=== PATIENT | female | born 1950 | race African-American/Black ===

== ENCOUNTER 2016-06-21 13:47 | Inpatient (IN) | payer MEDICARE, MEDICAID ==
[~2016-06-21] VITALS: Ht 167.6 cm; Wt 110.7 kg
[~2016-06-21 13:47] MED LIST: AMIODARONE; AMLO5TAB4 PO; ASPI-1035 PO; BENA20TA3 PO; CARV25TA47 PO; CHOL500010 PO; CLOP75TA2 PO; DIGO125T82 PO; FURO40TA5 PO; ISOS30TA6 PO; POTA10CA42 PO; SIMV20TA6 PO; SPIR25TA4 PO; WARF4TAB39 PO
[2016-06-21] MEDS ORDERED: SODIUM CHLORIDE 0.9% 1,000 ML IV ONE (14:17)
[2016-06-21 14:41] LABS: BASOPHILS % 0.9 % (0.0-2.0); EOSINOPHILS % 2.5 % (0.0-5.0); HEMOGLOBIN. 13.4 g/dL (12.0-16.0); LYMPHOCYTES % 31.5 % (20.0-50.0); MEAN CORPUSCULAR HEMOGLOBIN 30.7 pg (28.0-32.0); MEAN CORPUSCULAR HGB CONC 34.4 g/dL (31.0-37.0); MEAN CORPUSCULAR VOLUME 89.3 fL (81.0-99.0); MONOCYTES % 9.8 % (2.0-8.0); NEUTROPHILS % 55.3 % (40.0-76.0); PLATELET 201 x1000/uL (130-400); RED BLOOD CELL COUNT 4.37 mill/uL (4.2-5.4); RED CELL DISTRIBUTION WIDTH 16.7 % (11.6-14.6); WHITE BLOOD COUNT 6.3 x1000/uL (4.5-11.0)
[2016-06-21 14:47] LABS: INR 1.2; PROTHROMBIN TIME 12.5 sec
[2016-06-21 14:57] LABS: ALANINE AMINOTRANSFERASE 17 IU/L (13-61); ALBUMIN 3.7 g/dL (3.4-5.0); ANION GAP 16; CALCIUM 8.9 mg/dL (8.5-10.1); CARBON DIOXIDE 28 mEq/L (21-32); CHLORIDE 101 mEq/L (98-107); INDEX HEMOLYSI 1 (1-3); INDEX ICTERIC 2 (1-4); INDEX LIPEMIC 1 (1-3); LIPASE 52 IU/L (73-393); NT PRO B-TYPE NATRIURETIC PEP 11857 pg/mL (5-125); TROPONIN I 0.07 ng/mL (0.00-0.04); UREA NITROGEN BLOOD 10 mg/dL (7-21); eGFR > 60 mL/min (>60)
[2016-06-21 15:01] LABS: LACTIC ACID 2.7 mmol/L (0.4-2.0)
[2016-06-21] MEDS ORDERED: POTASSIUM CHLORIDE 20MEQ TABLET SR PO ONE (15:45)
[2016-06-21] MEDS ORDERED: KCL 10MEQ/50ML PREMIX 50 ML IV ONE (15:45)
[2016-06-21 15:53] LABS: MAGNESIUM 2.1 mg/dL (1.8-2.4)
[2016-06-21] MEDS ORDERED: LORAZEPAM 2MG/ML CPJ IV ONE (16:30)
[2016-06-21] MEDS ORDERED: ONDANSETRON HCL 4MG/2ML VIAL IV ONE (16:30)
[2016-06-21 20:00] VITALS: BP 135/96
[2016-06-21 20:30] VITALS: BP 135/99
[2016-06-21] MEDS ORDERED: CLONIDINE 0.1MG TABLET PO PRN (21:30)
[2016-06-21] MEDS ORDERED: IPRATROPIUM/ALBUTEROL 0.5-3(2.5)MG/3ML NEB INH PRN (21:30)
[2016-06-21] MEDS ORDERED: MAGNESIUM/ALUMINUM HYDROXIDE/SIMETHICONE 30ML UDC PO PRN (21:30)
[2016-06-21] MEDS ORDERED: ACETAMINOPHEN 325MG TABLET PO PRN (21:30)
[2016-06-21] MEDS: ENOXAPARIN 30MG/0.3ML SYR SUBCUT SCH (22:31)
[2016-06-21] MEDS: HYDROCODONE/ACETAMINOPHEN 5/325MG TABLET PO PRN (22:50)
[2016-06-21 23:21] LABS: ANION GAP 14; CALCIUM 8.7 mg/dL (8.5-10.1); CARBON DIOXIDE 26 mEq/L (21-32); CHLORIDE 106 mEq/L (98-107); INDEX HEMOLYSI 1 (1-3); INDEX ICTERIC 2 (1-4); INDEX LIPEMIC 1 (1-3); MAGNESIUM 1.9 mg/dL (1.8-2.4); UREA NITROGEN BLOOD 10 mg/dL (7-21)
[2016-06-21 23:23] LABS: eGFR > 60 mL/min (>60)
[2016-06-21 23:26] LABS: CREATINE KINASE 47 IU/L (26-192); CREATINE KINASE MB FRACTION 0.5 ng/mL (0.5-3.6); TROPONIN I 0.07 ng/mL (0.00-0.04)
[2016-06-22] VITALS: BP 148/91
[2016-06-22 04:00] VITALS: BP 132/98
[2016-06-22 07:21] LABS: CREATINE KINASE MB FRACTION 0.5 ng/mL (0.5-3.6); THYROID STIMULATING HORMONE 1.4 mIU/mL (0.36-3.74); TROPONIN I 0.07 ng/mL (0.00-0.04)
[2016-06-22 08:00] VITALS: BP 135/103
[2016-06-22] MEDS: ASPIRIN 81MG EC TABLET PO SCH (08:40)
[2016-06-22] MEDS: ENOXAPARIN 30MG/0.3ML SYR SUBCUT SCH (08:40)
[2016-06-22] MEDS: CHOLECALCIFEROL (D3) 1000 UNIT TABLET PO SCH (08:40)
[2016-06-22] MEDS: PANTOPRAZOLE 40MG DR TABLET PO SCH (08:40)
[2016-06-22] MEDS: CLOPIDOGREL 75MG TABLET PO SCH (08:41)
[2016-06-22] MEDS: BENAZEPRIL 20MG TABLET PO SCH (08:41)
[2016-06-22] MEDS: SPIRONOLACTONE 25MG TABLET PO SCH (08:41)
[2016-06-22] MEDS: AMIODARONE HCL 200 MG TABLET PO SCH (08:41)
[2016-06-22] MEDS: POTASSIUM CHLORIDE 10MEQ TABLET SR PO SCH (08:41)
[2016-06-22] MEDS ORDERED: FUROSEMIDE 40MG TABLET PO SCH (09:00)
[2016-06-22] MEDS ORDERED: POTASSIUM CHLORIDE 20MEQ TABLET SR PO NR (11:15)
[2016-06-22 12:00] VITALS: BP 141/95
[2016-06-22] MEDS: ISOSORBIDE MONONITRATE 30MG TABLET SR 24HR PO SCH (13:13)
[2016-06-22] MEDS: CARVEDILOL 12.5MG TABLET PO SCH (13:13)
[2016-06-22] MEDS: AMLODIPINE 5MG TABLET PO SCH (13:13)
[2016-06-22] MEDS: FUROSEMIDE 40MG/4ML VIAL IVP SCH ×2 (13:21→17:13)
[2016-06-22 15:23] LABS: GLUCOSE URINE NEGATIVE (NEGATIVE); KETONES URINE NEGATIVE (NEGATIVE); LEUKOCYTE ESTERASE URINE NEGATIVE (NEGATIVE); NITRITE URINE NEGATIVE (NEGATIVE); OCCULT BLOOD URINE 1+ (NEGATIVE); PROTEIN URINE NEGATIVE (NEGATIVE); SPECIFIC GRAVITY URINE 1.007 (1.005-1.030)
[2016-06-22 15:24] LABS: CLARITY URINE CLOUDY (CLEAR); COLOR URINE YELLOW (YELLOW)
[2016-06-22 15:39] LABS: BACTERIA URINE TRACE; MUCUS URINE TRACE /lpf (< = 2+); SQUAMOUS EPITHELIAL CELL URINE 1+ /lpf (RARE/1+); WBC URINE 0-2 /hpf (0-2)
[2016-06-22 15:44] LABS: *AMPHETAMINES SCREEN URINE NEGATIVE (NEGATIVE); *BARBITURATES SCREEN URINE NEGATIVE (NEGATIVE); *BENZODIAZEPINES SCREEN URINE NEGATIVE (NEGATIVE); *COCAINE SCREEN URINE NEGATIVE (NEGATIVE); CANNABINOID URINE SCREEN NEGATIVE (NEGATIVE); ECSTASY MDMA SCREEN URINE NEGATIVE (NEGATIVE); METHADONE URINE SCREEN NEGATIVE (NEGATIVE); OPIATES URINE SCREEN PRESUMTIVE POSITIVE (NEGATIVE); PHENCYCLIDINE URINE SCREEN NEGATIVE (NEGATIVE)
[2016-06-22 16:00] VITALS: BP 116/80
[2016-06-22] MEDS: DIGOXIN 125MCG TABLET PO SCH (17:13)
[2016-06-22] MEDS: HYDROCODONE/ACETAMINOPHEN 5/325MG TABLET PO PRN (17:48)
[2016-06-22] MEDS ORDERED: WARFARIN SODIUM 5MG TABLET PO SCH (18:00)
[2016-06-22] MEDS ORDERED: WARFARIN SODIUM 4MG TABLET PO SCH (18:00)
[2016-06-22 20:00] VITALS: BP 100/64
[2016-06-22] MEDS: ATORVASTATIN CALCIUM 10MG TABLET PO SCH (22:39)
[2016-06-23] VITALS: BP 111/79
[2016-06-23 04:00] VITALS: BP 123/87
[2016-06-23 06:25] LABS: BASOPHILS % 1.6 % (0.0-2.0); EOSINOPHILS % 8.7 % (0.0-5.0); HEMATOCRIT. 32.2 % (36.0-48.0); HEMOGLOBIN. 11.1 g/dL (12.0-16.0); LYMPHOCYTES % 29.6 % (20.0-50.0); MEAN CORPUSCULAR HEMOGLOBIN 30.8 pg (28.0-32.0); MEAN CORPUSCULAR HGB CONC 34.3 g/dL (31.0-37.0); MEAN CORPUSCULAR VOLUME 89.8 fL (81.0-99.0); MONOCYTES % 11.2 % (2.0-8.0); NEUTROPHILS % 48.9 % (40.0-76.0); PLATELET 149 x1000/uL (130-400); RED BLOOD CELL COUNT 3.59 mill/uL (4.2-5.4); RED CELL DISTRIBUTION WIDTH 16.9 % (11.6-14.6); WHITE BLOOD COUNT 4.9 x1000/uL (4.5-11.0)
[2016-06-23 06:41] LABS: INR 1.2; PROTHROMBIN TIME 12.7 sec
[2016-06-23 06:58] LABS: ALANINE AMINOTRANSFERASE 19 IU/L (13-61); ALBUMIN 3.3 g/dL (3.4-5.0); ANION GAP 13; CALCIUM 8.1 mg/dL (8.5-10.1); CARBON DIOXIDE 32 mEq/L (21-32); CHLORIDE 103 mEq/L (98-107); INDEX HEMOLYSI 1 (1-3); INDEX ICTERIC 1 (1-4); INDEX LIPEMIC 1 (1-3); MAGNESIUM 1.7 mg/dL (1.8-2.4); UREA NITROGEN BLOOD 9 mg/dL (7-21); eGFR > 60 mL/min (>60)
[2016-06-23 08:00] VITALS: BP 136/92
[2016-06-23] MEDS: CLOPIDOGREL 75MG TABLET PO SCH (09:07)
[2016-06-23] MEDS: BENAZEPRIL 20MG TABLET PO SCH (09:08)
[2016-06-23] MEDS: AMLODIPINE 5MG TABLET PO SCH (09:08)
[2016-06-23] MEDS: AMIODARONE HCL 200 MG TABLET PO SCH (09:09)
[2016-06-23] MEDS: SPIRONOLACTONE 25MG TABLET PO SCH (09:09)
[2016-06-23] MEDS: PANTOPRAZOLE 40MG DR TABLET PO SCH (09:09)
[2016-06-23] MEDS: ISOSORBIDE MONONITRATE 30MG TABLET SR 24HR PO SCH (09:09)
[2016-06-23] MEDS: CHOLECALCIFEROL (D3) 1000 UNIT TABLET PO SCH (09:09)
[2016-06-23] MEDS: ASPIRIN 81MG EC TABLET PO SCH (09:09)
[2016-06-23] MEDS: POTASSIUM CHLORIDE 10MEQ TABLET SR PO SCH (09:09)
[2016-06-23] MEDS: CARVEDILOL 12.5MG TABLET PO SCH (09:10)
[2016-06-23] MEDS: FUROSEMIDE 40MG/4ML VIAL IVP SCH ×2 (09:10→17:57)
[2016-06-23] MEDS ORDERED: POTASSIUM CHLORIDE 20MEQ TABLET SR PO NR ×2 (11:07→16:00)
[2016-06-23 12:00] VITALS: BP 107/67
[2016-06-23] MEDS ORDERED: MAGNESIUM 2 G PREMIX 50 ML IV NR (13:00)
[2016-06-23] MEDS: ENOXAPARIN 100MG/ML SYR SUBCUT SCH ×3 (13:03→21:31)
[2016-06-23 16:00] VITALS: BP 114/75
[2016-06-23] MEDS: DIGOXIN 125MCG TABLET PO SCH (17:56)
[2016-06-23] MEDS ORDERED: WARFARIN SODIUM 7.5MG TABLET PO SCH (18:00)
[2016-06-23 20:00] VITALS: BP 120/75
[2016-06-23] MEDS: ZOLPIDEM TARTRATE 5MG TABLET PO PRN (21:30)
[2016-06-23] MEDS: ATORVASTATIN CALCIUM 10MG TABLET PO SCH (21:30)
[2016-06-24] VITALS: BP 112/75
[2016-06-24 04:00] VITALS: BP 112/81
[2016-06-24] MEDS: HYDROCODONE/ACETAMINOPHEN 5/325MG TABLET PO PRN (05:38)
[2016-06-24 06:23] LABS: INR 1.2; PROTHROMBIN TIME 12.5 sec
[2016-06-24 06:24] LABS: EOSINOPHILS % 11.1 % (0.0-5.0); HEMATOCRIT. 33.3 % (36.0-48.0); HEMOGLOBIN. 11.3 g/dL (12.0-16.0); LYMPHOCYTES % 35.3 % (20.0-50.0); MEAN CORPUSCULAR HEMOGLOBIN 30.5 pg (28.0-32.0); MEAN CORPUSCULAR VOLUME 89.7 fL (81.0-99.0); MEAN PLATELET VOLUME 8.7 fl (7.4-10.4); MONOCYTES % 13.7 % (2.0-8.0); NEUTROPHILS % 37.9 % (40.0-76.0); PLATELET 173 x1000/uL (130-400); RED BLOOD CELL COUNT 3.71 mill/uL (4.2-5.4); RED CELL DISTRIBUTION WIDTH 16.8 % (11.6-14.6); WHITE BLOOD COUNT 4.7 x1000/uL (4.5-11.0)
[2016-06-24 06:51] LABS: CHLORIDE 103 mEq/L (98-107); INDEX HEMOLYSI 1 (1-3); INDEX ICTERIC 1 (1-4); INDEX LIPEMIC 1 (1-3)
[2016-06-24 07:24] LABS: ANION GAP 14; CALCIUM 8.3 mg/dL (8.5-10.1); CARBON DIOXIDE 29 mEq/L (21-32); MAGNESIUM 2.4 mg/dL (1.8-2.4); NT PRO B-TYPE NATRIURETIC PEP 2163 pg/mL (5-125); UREA NITROGEN BLOOD 7 mg/dL (7-21); eGFR > 60 mL/min (>60)
[2016-06-24] MEDS: PANTOPRAZOLE 40MG DR TABLET PO SCH (07:53)
[2016-06-24 08:00] VITALS: BP 135/88
[2016-06-24] MEDS: FUROSEMIDE 40MG/4ML VIAL IVP SCH ×2 (08:05→17:42)
[2016-06-24] MEDS: ISOSORBIDE MONONITRATE 30MG TABLET SR 24HR PO SCH (09:00)
[2016-06-24] MEDS: CHOLECALCIFEROL (D3) 1000 UNIT TABLET PO SCH (09:18)
[2016-06-24] MEDS: CARVEDILOL 12.5MG TABLET PO SCH (09:19)
[2016-06-24] MEDS: CLOPIDOGREL 75MG TABLET PO SCH (09:19)
[2016-06-24] MEDS: AMLODIPINE 5MG TABLET PO SCH (09:19)
[2016-06-24] MEDS: ASPIRIN 81MG EC TABLET PO SCH (09:19)
[2016-06-24] MEDS: POTASSIUM CHLORIDE 10MEQ TABLET SR PO SCH (09:19)
[2016-06-24] MEDS: SPIRONOLACTONE 25MG TABLET PO SCH (09:19)
[2016-06-24] MEDS: AMIODARONE HCL 200 MG TABLET PO SCH (09:26)
[2016-06-24] MEDS: BENAZEPRIL 20MG TABLET PO SCH (09:26)
[2016-06-24 12:00] VITALS: BP 118/80
[2016-06-24] MEDS: ENOXAPARIN 100MG/ML SYR SUBCUT SCH (12:09)
[2016-06-24] MEDS: DRONABINOL 2.5MG CAPSULE PO SCH (15:00)
[2016-06-24 16:00] VITALS: BP 107/73
[2016-06-24] MEDS ORDERED: WARFARIN SODIUM 3MG TABLET PO SCH (18:00)
[2016-06-24] MEDS: DIGOXIN 125MCG TABLET PO SCH (18:00)
[2016-06-24 20:00] VITALS: BP 139/96
[2016-06-24] MEDS: ATORVASTATIN CALCIUM 10MG TABLET PO SCH (20:20)
[2016-06-24] MEDS: ZOLPIDEM TARTRATE 5MG TABLET PO PRN (20:23)
[2016-06-24] MEDS ORDERED: ENOXAPARIN 100MG/ML SYR SUBCUT SCH (21:00)
[2016-06-25] VITALS: BP 120/72
[2016-06-25 04:00] VITALS: BP 135/88
[2016-06-25 06:58] LABS: INR 1.2; PROTHROMBIN TIME 12.2 sec
[2016-06-25 07:04] LABS: BASOPHILS % 0.8 % (0.0-2.0); EOSINOPHILS % 11.2 % (0.0-5.0); HEMATOCRIT. 37.2 % (36.0-48.0); HEMOGLOBIN. 12.7 g/dL (12.0-16.0); MEAN CORPUSCULAR HEMOGLOBIN 30.6 pg (28.0-32.0); MEAN CORPUSCULAR HGB CONC 34.1 g/dL (31.0-37.0); MEAN CORPUSCULAR VOLUME 89.6 fL (81.0-99.0); MONOCYTES % 9.9 % (2.0-8.0); NEUTROPHILS % 42.1 % (40.0-76.0); PLATELET 227 x1000/uL (130-400); RED BLOOD CELL COUNT 4.14 mill/uL (4.2-5.4); RED CELL DISTRIBUTION WIDTH 16.5 % (11.6-14.6); WHITE BLOOD COUNT 5.2 x1000/uL (4.5-11.0)
[2016-06-25 07:25] LABS: ALANINE AMINOTRANSFERASE 23 IU/L (13-61); ALBUMIN 3.7 g/dL (3.4-5.0); ANION GAP 11; CALCIUM 9.3 mg/dL (8.5-10.1); CARBON DIOXIDE 33 mEq/L (21-32); CHLORIDE 101 mEq/L (98-107); INDEX HEMOLYSI 1 (1-3); INDEX ICTERIC 1 (1-4); INDEX LIPEMIC 1 (1-3); UREA NITROGEN BLOOD 7 mg/dL (7-21); eGFR > 60 mL/min (>60)
[2016-06-25] MEDS: PANTOPRAZOLE 40MG DR TABLET PO SCH (07:40)
[2016-06-25 08:00] VITALS: BP 137/96
[2016-06-25] MEDS: FUROSEMIDE 40MG/4ML VIAL IVP SCH ×2 (08:29→17:49)
[2016-06-25] MEDS: CHOLECALCIFEROL (D3) 1000 UNIT TABLET PO SCH ×2 (09:00→17:03)
[2016-06-25] MEDS: ISOSORBIDE MONONITRATE 30MG TABLET SR 24HR PO SCH (09:00)
[2016-06-25] MEDS: CARVEDILOL 12.5MG TABLET PO SCH (09:00)
[2016-06-25] MEDS: ASPIRIN 81MG EC TABLET PO SCH (09:00)
[2016-06-25] MEDS: DRONABINOL 2.5MG CAPSULE PO SCH ×2 (09:00→17:02)
[2016-06-25] MEDS: SPIRONOLACTONE 25MG TABLET PO SCH (09:00)
[2016-06-25] MEDS: AMIODARONE HCL 200 MG TABLET PO SCH ×2 (09:00→17:04)
[2016-06-25] MEDS: POTASSIUM CHLORIDE 10MEQ TABLET SR PO SCH (09:00)
[2016-06-25] MEDS: BENAZEPRIL 20MG TABLET PO SCH (09:00)
[2016-06-25 12:00] VITALS: BP 109/87
[2016-06-25] MEDS ORDERED: SIMETHICONE 40 MG/0.6 ML 30ML ONE ×2 (13:09→14:07)
[2016-06-25] MEDS ORDERED: SODIUM CHLORIDE 0.9% 10ML VIAL ONE (13:09)
[2016-06-25] MEDS ORDERED: MIDAZOLAM HCL 5 MG/5 ML VIAL IV PRN (14:05)
[2016-06-25] MEDS ORDERED: MIDAZOLAM HCL 5 MG/5 ML VIAL ONE (14:08)
[2016-06-25] MEDS ORDERED: FENTANYL CITRATE/PF 50MCG/ML 2ML VIAL ONE (14:08)
[2016-06-25 16:00] VITALS: BP 138/94
[2016-06-25] MEDS: DIGOXIN 125MCG TABLET PO SCH (17:00)
[2016-06-25] MEDS: SUCRALFATE 1 G/10 ML UDC PO SCH ×2 (17:00→20:25)
[2016-06-25] MEDS: GUAIFENESIN 200MG/10ML SUGAR FREE UDC PO PRN (18:29)
[2016-06-25] MEDS: ONDANSETRON HCL 4MG/2ML VIAL IV PRN (19:46)
[2016-06-25 19:48] LABS: HEMATOCRIT 39.7 % (36.0-48.0); HEMOGLOBIN 13.6 g/dL (12.0-16.0)
[2016-06-25 20:00] VITALS: BP 110/80
[2016-06-25] MEDS: FAMOTIDINE 20MG/2ML VIAL IV SCH (20:25)
[2016-06-25] MEDS: ATORVASTATIN CALCIUM 10MG TABLET PO SCH (20:25)
[2016-06-25] MEDS: ZOLPIDEM TARTRATE 5MG TABLET PO PRN (20:43)
[2016-06-26] VITALS: BP 115/87
[2016-06-26 04:00] VITALS: BP 101/75
[2016-06-26] MEDS: ONDANSETRON HCL 4MG/2ML VIAL IV PRN ×2 (04:01→18:45)
[2016-06-26 06:32] LABS: EOSINOPHILS % 8.2 % (0.0-5.0); HEMATOCRIT. 36.1 % (36.0-48.0); HEMOGLOBIN. 12.4 g/dL (12.0-16.0); MEAN CORPUSCULAR HEMOGLOBIN 30.9 pg (28.0-32.0); MEAN CORPUSCULAR HGB CONC 34.3 g/dL (31.0-37.0); MEAN CORPUSCULAR VOLUME 90.1 fL (81.0-99.0); MEAN PLATELET VOLUME 8.7 fl (7.4-10.4); MONOCYTES % 11.3 % (2.0-8.0); NEUTROPHILS % 52.5 % (40.0-76.0); PLATELET 217 x1000/uL (130-400); RED BLOOD CELL COUNT 4.01 mill/uL (4.2-5.4); RED CELL DISTRIBUTION WIDTH 16.4 % (11.6-14.6); WHITE BLOOD COUNT 6.4 x1000/uL (4.5-11.0)
[2016-06-26 07:06] LABS: ANION GAP 11; CALCIUM 8.7 mg/dL (8.5-10.1); CARBON DIOXIDE 31 mEq/L (21-32); CHLORIDE 102 mEq/L (98-107); INDEX HEMOLYSI 2 (1-3); INDEX ICTERIC 1 (1-4); INDEX LIPEMIC 1 (1-3); UREA NITROGEN BLOOD 22 mg/dL (7-21); eGFR > 60 mL/min (>60)
[2016-06-26] MEDS: FUROSEMIDE 40MG/4ML VIAL IVP SCH ×2 (07:15→08:08)
[2016-06-26 07:37] VITALS: BP 94/74
[2016-06-26] MEDS: SUCRALFATE 1 G/10 ML UDC PO SCH ×4 (08:08→20:56)
[2016-06-26] MEDS: PANTOPRAZOLE 40MG DR TABLET PO SCH (08:08)
[2016-06-26] MEDS: FAMOTIDINE 20MG/2ML VIAL IV SCH ×2 (08:08→20:56)
[2016-06-26] MEDS: BENAZEPRIL 20MG TABLET PO SCH (08:13)
[2016-06-26] MEDS: POTASSIUM CHLORIDE 10MEQ TABLET SR PO SCH (08:13)
[2016-06-26] MEDS: ASPIRIN 81MG EC TABLET PO SCH (08:13)
[2016-06-26] MEDS: CARVEDILOL 12.5MG TABLET PO SCH ×2 (08:14→17:34)
[2016-06-26] MEDS: SPIRONOLACTONE 25MG TABLET PO SCH (08:14)
[2016-06-26] MEDS: ISOSORBIDE MONONITRATE 30MG TABLET SR 24HR PO SCH (08:14)
[2016-06-26] MEDS ORDERED: POTASSIUM CHLORIDE 20MEQ TABLET SR PO SCH (08:30)
[2016-06-26 12:00] VITALS: BP 116/97
[2016-06-26 13:58] LABS: MAGNESIUM 2.3 mg/dL (1.8-2.4)
[2016-06-26 16:00] VITALS: BP 96/72
[2016-06-26] MEDS: DIGOXIN 250MCG TABLET PO SCH (17:33)
[2016-06-26] MEDS: AMIODARONE HCL 200 MG TABLET PO SCH (17:34)
[2016-06-26 20:00] VITALS: BP 114/83
[2016-06-26] MEDS: ZOLPIDEM TARTRATE 5MG TABLET PO PRN (20:56)
[2016-06-26] MEDS: ATORVASTATIN CALCIUM 10MG TABLET PO SCH (20:56)
[2016-06-27] VITALS (7 sets, daily range): BP systolic 99–115; BP diastolic 70–91
[2016-06-27] MEDS: GUAIFENESIN 200MG/10ML SUGAR FREE UDC PO PRN ×2 (06:17→13:29)
[2016-06-27 07:00] LABS: ANION GAP 14; CALCIUM 8.8 mg/dL (8.5-10.1); CARBON DIOXIDE 26 mEq/L (21-32); CHLORIDE 107 mEq/L (98-107); INDEX HEMOLYSI 4 (1-3); INDEX ICTERIC 1 (1-4); INDEX LIPEMIC 1 (1-3); MAGNESIUM 2.4 mg/dL (1.8-2.4); UREA NITROGEN BLOOD 26 mg/dL (7-21); eGFR > 60 mL/min (>60)
[2016-06-27] MEDS: SUCRALFATE 1 G/10 ML UDC PO SCH ×4 (07:58→20:57)
[2016-06-27] MEDS: PANTOPRAZOLE 40MG DR TABLET PO SCH (07:58)
[2016-06-27 08:35] LABS: EOSINOPHILS % 9.4 % (0.0-5.0); HEMATOCRIT. 35.8 % (36.0-48.0); LYMPHOCYTES % 29.5 % (20.0-50.0); MEAN CORPUSCULAR HEMOGLOBIN 30.1 pg (28.0-32.0); MEAN CORPUSCULAR HGB CONC 33.6 g/dL (31.0-37.0); MEAN CORPUSCULAR VOLUME 89.6 fL (81.0-99.0); MEAN PLATELET VOLUME 8.8 fl (7.4-10.4); MONOCYTES % 8.5 % (2.0-8.0); NEUTROPHILS % 51.6 % (40.0-76.0); RED BLOOD CELL COUNT 3.99 mill/uL (4.2-5.4); RED CELL DISTRIBUTION WIDTH 16.5 % (11.6-14.6); WHITE BLOOD COUNT 8.1 x1000/uL (4.5-11.0)
[2016-06-27 08:38] LABS: PLATELET 259 x1000/uL (130-400)
[2016-06-27] MEDS: ASPIRIN 81MG EC TABLET PO SCH (09:00)
[2016-06-27] MEDS: BENAZEPRIL 20MG TABLET PO SCH (09:00)
[2016-06-27] MEDS: SPIRONOLACTONE 25MG TABLET PO SCH (09:00)
[2016-06-27] MEDS: CARVEDILOL 12.5MG TABLET PO SCH (09:00)
[2016-06-27] MEDS: POTASSIUM CHLORIDE 10MEQ TABLET SR PO SCH (09:00)
[2016-06-27] MEDS: ISOSORBIDE MONONITRATE 30MG TABLET SR 24HR PO SCH (09:00)
[2016-06-27] MEDS ORDERED: DEXT 5%/0.45% NACL 1000ML 1,000 ML IV SCH (09:30)
[2016-06-27] MEDS: PANTOPRAZOLE SODIUM 40 MG/VIAL IV SCH ×2 (10:31→18:25)
[2016-06-27] MEDS: DRONABINOL 2.5MG CAPSULE PO SCH (10:33)
[2016-06-27] MEDS: AMIODARONE HCL 200 MG TABLET PO SCH ×2 (10:33→17:02)
[2016-06-27] MEDS: CHOLECALCIFEROL (D3) 1000 UNIT TABLET PO SCH (10:33)
[2016-06-27 12:13] LABS: HEMATOCRIT 34.4 % (36.0-48.0); HEMOGLOBIN 11.8 g/dL (12.0-16.0)
[2016-06-27 12:22] LABS: INR 1.2; PARTIAL THROMBOPLASTIN TIME 26.2 sec (24.0-34.0); PROTHROMBIN TIME 12.7 sec
[2016-06-27] MEDS: DIGOXIN 250MCG TABLET PO SCH (18:19)
[2016-06-27] MEDS: ONDANSETRON HCL 4MG/2ML VIAL IV PRN (18:25)
[2016-06-27 19:43] LABS: HEMATOCRIT 34.8 % (36.0-48.0); HEMOGLOBIN 11.7 g/dL (12.0-16.0)
[2016-06-27] MEDS: ZOLPIDEM TARTRATE 5MG TABLET PO PRN (20:57)
[2016-06-27] MEDS: ATORVASTATIN CALCIUM 10MG TABLET PO SCH (20:57)
[2016-06-27] MEDS: FUROSEMIDE 20MG TABLET PO SCH (20:59)
[2016-06-27] MEDS: BENAZEPRIL 10MG TABLET PO SCH (21:00)
[2016-06-28] VITALS: BP 108/55
[2016-06-28 04:00] VITALS: BP 124/76
[2016-06-28] MEDS: PANTOPRAZOLE SODIUM 40 MG/VIAL IV SCH ×2 (05:36→18:06)
[2016-06-28 07:18] LABS: ANION GAP 12; CALCIUM 8.5 mg/dL (8.5-10.1); CARBON DIOXIDE 27 mEq/L (21-32); CHLORIDE 105 mEq/L (98-107); INDEX HEMOLYSI 1 (1-3); INDEX ICTERIC 1 (1-4); INDEX LIPEMIC 1 (1-3); MAGNESIUM 2.4 mg/dL (1.8-2.4); UREA NITROGEN BLOOD 14 mg/dL (7-21); eGFR > 60 mL/min (>60)
[2016-06-28 07:25] LABS: DIGOXIN 2.3 ng/mL (0.9-2.0)
[2016-06-28] MEDS: SUCRALFATE 1 G/10 ML UDC PO SCH ×4 (07:51→20:57)
[2016-06-28 08:00] VITALS: BP 122/67
[2016-06-28 08:01] LABS: BASOPHILS % 1.1 % (0.0-2.0); HEMATOCRIT. 32.3 % (36.0-48.0); LYMPHOCYTES % 30.6 % (20.0-50.0); MEAN CORPUSCULAR HEMOGLOBIN 30.5 pg (28.0-32.0); MEAN CORPUSCULAR VOLUME 89.6 fL (81.0-99.0); MEAN PLATELET VOLUME 8.8 fl (7.4-10.4); MONOCYTES % 10.4 % (2.0-8.0); NEUTROPHILS % 43.9 % (40.0-76.0); PLATELET 207 x1000/uL (130-400); RED BLOOD CELL COUNT 3.61 mill/uL (4.2-5.4); RED CELL DISTRIBUTION WIDTH 15.9 % (11.6-14.6); WHITE BLOOD COUNT 5.9 x1000/uL (4.5-11.0)
[2016-06-28] MEDS: DRONABINOL 2.5MG CAPSULE PO SCH (09:24)
[2016-06-28] MEDS: CARVEDILOL 12.5MG TABLET PO SCH (09:25)
[2016-06-28] MEDS: CHOLECALCIFEROL (D3) 1000 UNIT TABLET PO SCH (09:26)
[2016-06-28] MEDS: DIGOXIN 250MCG TABLET PO SCH (09:26)
[2016-06-28] MEDS: AMIODARONE HCL 200 MG TABLET PO SCH ×2 (09:26→17:11)
[2016-06-28] MEDS: FUROSEMIDE 20MG TABLET PO SCH ×2 (09:27→20:57)
[2016-06-28] MEDS: ISOSORBIDE MONONITRATE 30MG TABLET SR 24HR PO SCH (09:27)
[2016-06-28] MEDS: BENAZEPRIL 10MG TABLET PO SCH ×2 (09:30→20:57)
[2016-06-28 12:00] VITALS: BP 93/61
[2016-06-28 12:06] LABS: HEMATOCRIT 32.3 % (36.0-48.0); HEMOGLOBIN 11.2 g/dL (12.0-16.0)
[2016-06-28 16:00] VITALS: BP 110/60
[2016-06-28] MEDS: PROMETHAZINE/DEXTROMETHORPHAN 6.25-15MG/5ML BOTTLE 120ML PO PRN (17:54)
[2016-06-28 19:02] LABS: HEMATOCRIT 32.2 % (36.0-48.0); HEMOGLOBIN 10.9 g/dL (12.0-16.0)
[2016-06-28 20:00] VITALS: BP 104/65
[2016-06-28] MEDS: ZOLPIDEM TARTRATE 5MG TABLET PO PRN (20:57)
[2016-06-28] MEDS: ATORVASTATIN CALCIUM 10MG TABLET PO SCH (20:57)
[2016-06-28] MEDS: DILTIAZEM HCL 30MG TABLET PO SCH (21:00)
[2016-06-29] VITALS: BP 93/47
[2016-06-29] MEDS: PROMETHAZINE/DEXTROMETHORPHAN 6.25-15MG/5ML BOTTLE 120ML PO PRN (01:08)
[2016-06-29 04:00] VITALS: BP 98/58
[2016-06-29] MEDS: DILTIAZEM HCL 30MG TABLET PO SCH ×3 (05:01→21:56)
[2016-06-29] MEDS: PANTOPRAZOLE SODIUM 40 MG/VIAL IV SCH ×2 (05:01→17:15)
[2016-06-29 06:20] LABS: EOSINOPHILS % 12.5 % (0.0-5.0); HEMATOCRIT. 31.4 % (36.0-48.0); HEMOGLOBIN. 10.6 g/dL (12.0-16.0); LYMPHOCYTES % 25.9 % (20.0-50.0); MEAN CORPUSCULAR HEMOGLOBIN 30.2 pg (28.0-32.0); MEAN CORPUSCULAR HGB CONC 33.7 g/dL (31.0-37.0); MEAN CORPUSCULAR VOLUME 89.8 fL (81.0-99.0); MONOCYTES % 10.1 % (2.0-8.0); NEUTROPHILS % 50.5 % (40.0-76.0); PLATELET 230 x1000/uL (130-400); RED CELL DISTRIBUTION WIDTH 15.8 % (11.6-14.6); WHITE BLOOD COUNT 6.2 x1000/uL (4.5-11.0)
[2016-06-29 07:59] LABS: ANION GAP 9; CALCIUM 8.4 mg/dL (8.5-10.1); CARBON DIOXIDE 30 mEq/L (21-32); CHLORIDE 105 mEq/L (98-107); INDEX HEMOLYSI 1 (1-3); INDEX ICTERIC 1 (1-4); INDEX LIPEMIC 1 (1-3); UREA NITROGEN BLOOD 12 mg/dL (7-21); eGFR > 60 mL/min (>60)
[2016-06-29 08:00] VITALS: BP 107/67
[2016-06-29] MEDS: SUCRALFATE 1 G/10 ML UDC PO SCH ×4 (08:30→21:55)
[2016-06-29] MEDS: FUROSEMIDE 20MG TABLET PO SCH ×2 (08:30→21:55)
[2016-06-29] MEDS: AMIODARONE HCL 200 MG TABLET PO SCH ×2 (08:30→17:15)
[2016-06-29] MEDS: CHOLECALCIFEROL (D3) 1000 UNIT TABLET PO SCH (08:30)
[2016-06-29] MEDS: BENAZEPRIL 10MG TABLET PO SCH ×2 (08:31→21:00)
[2016-06-29] MEDS: CARVEDILOL 12.5MG TABLET PO SCH (08:31)
[2016-06-29] MEDS: ISOSORBIDE MONONITRATE 30MG TABLET SR 24HR PO SCH (08:34)
[2016-06-29] MEDS: DRONABINOL 2.5MG CAPSULE PO SCH (08:34)
[2016-06-29 12:00] VITALS: BP 110/63
[2016-06-29 16:00] VITALS: BP 109/69
[2016-06-29 20:00] VITALS: BP 103/61
[2016-06-29] MEDS: ATORVASTATIN CALCIUM 10MG TABLET PO SCH (21:55)
[2016-06-29] MEDS: TEMAZEPAM 15MG CAPSULE PO PRN (21:55)
[2016-06-30] VITALS: BP 97/55
[2016-06-30] MEDS: PROMETHAZINE/DEXTROMETHORPHAN 6.25-15MG/5ML BOTTLE 120ML PO PRN (02:19)
[2016-06-30 04:00] VITALS: BP 103/64
[2016-06-30] MEDS: DILTIAZEM HCL 30MG TABLET PO SCH ×3 (06:00→22:00)
[2016-06-30 06:33] LABS: BASOPHILS % 1.1 % (0.0-2.0); EOSINOPHILS % 12.9 % (0.0-5.0); HEMATOCRIT. 32.7 % (36.0-48.0); HEMOGLOBIN. 11.1 g/dL (12.0-16.0); LYMPHOCYTES % 28.8 % (20.0-50.0); MEAN CORPUSCULAR HEMOGLOBIN 30.3 pg (28.0-32.0); MEAN CORPUSCULAR VOLUME 88.9 fL (81.0-99.0); MEAN PLATELET VOLUME 8.7 fl (7.4-10.4); NEUTROPHILS % 46.2 % (40.0-76.0); PLATELET 238 x1000/uL (130-400); RED BLOOD CELL COUNT 3.68 mill/uL (4.2-5.4); RED CELL DISTRIBUTION WIDTH 15.9 % (11.6-14.6); WHITE BLOOD COUNT 6.3 x1000/uL (4.5-11.0)
[2016-06-30] MEDS: PANTOPRAZOLE SODIUM 40 MG/VIAL IV SCH ×2 (06:47→18:06)
[2016-06-30 07:12] LABS: ANION GAP 10; CALCIUM 8.4 mg/dL (8.5-10.1); CARBON DIOXIDE 30 mEq/L (21-32); CHLORIDE 104 mEq/L (98-107); INDEX HEMOLYSI 1 (1-3); INDEX ICTERIC 1 (1-4); INDEX LIPEMIC 1 (1-3); UREA NITROGEN BLOOD 10 mg/dL (7-21); eGFR > 60 mL/min (>60)
[2016-06-30 07:30] LABS: DIGOXIN 1.5 ng/mL (0.9-2.0)
[2016-06-30] MEDS: ONDANSETRON HCL 4MG/2ML VIAL IV PRN (07:42)
[2016-06-30] MEDS: SUCRALFATE 1 G/10 ML UDC PO SCH ×4 (07:42→21:29)
[2016-06-30 08:00] VITALS: BP 121/74
[2016-06-30] MEDS: CARVEDILOL 12.5MG TABLET PO SCH (09:12)
[2016-06-30] MEDS: BENAZEPRIL 10MG TABLET PO SCH ×2 (09:12→21:00)
[2016-06-30] MEDS: FUROSEMIDE 20MG TABLET PO SCH ×2 (09:12→21:29)
[2016-06-30] MEDS: ISOSORBIDE MONONITRATE 30MG TABLET SR 24HR PO SCH (09:12)
[2016-06-30] MEDS: AMIODARONE HCL 200 MG TABLET PO SCH ×2 (09:12→13:00)
[2016-06-30] MEDS: CHOLECALCIFEROL (D3) 1000 UNIT TABLET PO SCH (09:12)
[2016-06-30] MEDS: DRONABINOL 2.5MG CAPSULE PO SCH (09:13)
[2016-06-30] MEDS ORDERED: POTASSIUM CHLORIDE 20MEQ TABLET SR PO NR (10:25)
[2016-06-30 12:00] VITALS: BP 99/57
[2016-06-30] MEDS ORDERED: SODIUM CHLORIDE 0.9% 200 ML IV NR (15:49)
[2016-06-30 16:00] VITALS: BP 89/59
[2016-06-30] MEDS ORDERED: SORBITOL 70% SOLN 30ML PO NR ×2 (16:00→20:00)
[2016-06-30] MEDS: DIGOXIN 250MCG TABLET PO SCH (18:06)
[2016-06-30 20:00] VITALS: BP 108/71
[2016-06-30] MEDS: ATORVASTATIN CALCIUM 10MG TABLET PO SCH (21:29)
[2016-06-30] MEDS: TEMAZEPAM 15MG CAPSULE PO PRN (22:10)
[2016-07-01] VITALS: BP 113/70
[2016-07-01 04:00] VITALS: BP 127/80
[2016-07-01] MEDS: DILTIAZEM HCL 30MG TABLET PO SCH ×4 (05:43→20:58)
[2016-07-01] MEDS: PANTOPRAZOLE SODIUM 40 MG/VIAL IV SCH ×2 (05:43→18:32)
[2016-07-01 07:18] LABS: BASOPHILS % 1.4 % (0.0-2.0); EOSINOPHILS % 14.3 % (0.0-5.0); HEMATOCRIT. 33.5 % (36.0-48.0); HEMOGLOBIN. 11.3 g/dL (12.0-16.0); LYMPHOCYTES % 27.4 % (20.0-50.0); MEAN CORPUSCULAR HEMOGLOBIN 30.2 pg (28.0-32.0); MEAN CORPUSCULAR HGB CONC 33.8 g/dL (31.0-37.0); MEAN CORPUSCULAR VOLUME 89.3 fL (81.0-99.0); MEAN PLATELET VOLUME 8.7 fl (7.4-10.4); MONOCYTES % 11.8 % (2.0-8.0); NEUTROPHILS % 45.1 % (40.0-76.0); PLATELET 276 x1000/uL (130-400); RED BLOOD CELL COUNT 3.75 mill/uL (4.2-5.4); RED CELL DISTRIBUTION WIDTH 15.9 % (11.6-14.6); WHITE BLOOD COUNT 6.6 x1000/uL (4.5-11.0)
[2016-07-01 07:24] LABS: ANION GAP 11; CALCIUM 8.8 mg/dL (8.5-10.1); CARBON DIOXIDE 29 mEq/L (21-32); CHLORIDE 109 mEq/L (98-107); INDEX HEMOLYSI 1 (1-3); INDEX ICTERIC 1 (1-4); INDEX LIPEMIC 1 (1-3); UREA NITROGEN BLOOD 8 mg/dL (7-21); eGFR > 60 mL/min (>60)
[2016-07-01 08:00] VITALS: BP 129/76
[2016-07-01] MEDS: AMIODARONE HCL 200 MG TABLET PO SCH ×2 (08:19→17:00)
[2016-07-01] MEDS: DRONABINOL 2.5MG CAPSULE PO SCH (08:20)
[2016-07-01] MEDS: FUROSEMIDE 20MG TABLET PO SCH ×2 (08:20→20:58)
[2016-07-01] MEDS: ISOSORBIDE MONONITRATE 30MG TABLET SR 24HR PO SCH (08:20)
[2016-07-01] MEDS: CHOLECALCIFEROL (D3) 1000 UNIT TABLET PO SCH (08:20)
[2016-07-01] MEDS: CARVEDILOL 12.5MG TABLET PO SCH (08:21)
[2016-07-01] MEDS: BENAZEPRIL 10MG TABLET PO SCH ×2 (08:22→20:59)
[2016-07-01] MEDS: SUCRALFATE 1 G/10 ML UDC PO SCH ×4 (08:23→20:58)
[2016-07-01] MEDS ORDERED: SODIUM CHLORIDE 0.9% 10ML VIAL ONE (11:05)
[2016-07-01] MEDS ORDERED: SIMETHICONE 40 MG/0.6 ML 30ML ONE ×2 (11:05→13:11)
[2016-07-01 12:28] VITALS: BP 100/60
[2016-07-01] MEDS ORDERED: FENTANYL CITRATE/PF 50MCG/ML 2ML VIAL ONE (13:11)
[2016-07-01] MEDS ORDERED: MIDAZOLAM HCL 5 MG/5 ML VIAL ONE (13:12)
[2016-07-01] MEDS ORDERED: MIDAZOLAM HCL 5 MG/5 ML VIAL IV PRN (13:20)
[2016-07-01 15:50] VITALS: BP 111/60
[2016-07-01] MEDS: DIGOXIN 250MCG TABLET PO SCH (17:49)
[2016-07-01 20:00] VITALS: BP 112/55
[2016-07-01] MEDS: ATORVASTATIN CALCIUM 10MG TABLET PO SCH (20:58)
[2016-07-01] MEDS: TEMAZEPAM 15MG CAPSULE PO PRN (20:58)
[2016-07-02] VITALS: BP 108/50
[2016-07-02 04:00] VITALS: BP 121/65
[2016-07-02 05:20] LABS: BASOPHILS % 1.7 % (0.0-2.0); EOSINOPHILS % 14.2 % (0.0-5.0); HEMATOCRIT. 32.6 % (36.0-48.0); HEMOGLOBIN. 10.8 g/dL (12.0-16.0); LYMPHOCYTES % 30.7 % (20.0-50.0); MEAN CORPUSCULAR HEMOGLOBIN 30.2 pg (28.0-32.0); MEAN CORPUSCULAR HGB CONC 33.3 g/dL (31.0-37.0); MEAN CORPUSCULAR VOLUME 90.8 fL (81.0-99.0); MEAN PLATELET VOLUME 8.6 fl (7.4-10.4); MONOCYTES % 11.5 % (2.0-8.0); NEUTROPHILS % 41.9 % (40.0-76.0); PLATELET 264 x1000/uL (130-400); RED BLOOD CELL COUNT 3.59 mill/uL (4.2-5.4); RED CELL DISTRIBUTION WIDTH 15.7 % (11.6-14.6)
[2016-07-02] MEDS: DILTIAZEM HCL 30MG TABLET PO SCH ×2 (06:00→13:32)
[2016-07-02] MEDS: PANTOPRAZOLE SODIUM 40 MG/VIAL IV SCH (06:13)
[2016-07-02 06:20] LABS: CHLORIDE 108 mEq/L (98-107); INDEX HEMOLYSI 1 (1-3); INDEX ICTERIC 1 (1-4); INDEX LIPEMIC 1 (1-3)
[2016-07-02 06:25] LABS: ANION GAP 10; CALCIUM 8.3 mg/dL (8.5-10.1); CARBON DIOXIDE 28 mEq/L (21-32); UREA NITROGEN BLOOD 7 mg/dL (7-21); eGFR > 60 mL/min (>60)
[2016-07-02 08:00] VITALS: BP 128/80
[2016-07-02] MEDS: AMIODARONE HCL 200 MG TABLET PO SCH (10:24)
[2016-07-02] MEDS: SUCRALFATE 1 G/10 ML UDC PO SCH ×2 (10:24→12:06)
[2016-07-02] MEDS: CHOLECALCIFEROL (D3) 1000 UNIT TABLET PO SCH (10:25)
[2016-07-02] MEDS: ISOSORBIDE MONONITRATE 30MG TABLET SR 24HR PO SCH (10:25)
[2016-07-02] MEDS: CARVEDILOL 12.5MG TABLET PO SCH (10:25)
[2016-07-02] MEDS: FUROSEMIDE 20MG TABLET PO SCH (10:26)
[2016-07-02] MEDS: DRONABINOL 2.5MG CAPSULE PO SCH (10:26)
[2016-07-02] MEDS: BENAZEPRIL 10MG TABLET PO SCH (10:28)
[2016-07-02] MEDS ORDERED: POTASSIUM CHLORIDE 20MEQ TABLET SR PO NR (11:30)
[2016-07-02 12:00] VITALS: BP 104/61
[2016-07-02 13:07] VITALS: BP 104/61
== END 2016-07-02 13:57 | disposition home or self-care (01) | DRG 292 ==
LOC: ER 14:25 → 7WST 15:50
PROVIDERS: ADMIT Internal Medicine; ATTEND Internal Medicine
PROC: 02HV33Z Insertion of Infusion Device into Superior Vena Cava, Percutaneous Approach (ICD-10-PCS; 2016-06-22)
PROC: B548ZZA Ultrasonography of Superior Vena Cava, Guidance (ICD-10-PCS; 2016-06-22)
PROC: 0DB68ZX Excision of Stomach, Via Natural or Artificial Opening Endoscopic, Diagnostic (ICD-10-PCS; 2016-06-26)
PROC: 0DBN8ZX Excision of Sigmoid Colon, Via Natural or Artificial Opening Endoscopic, Diagnostic (ICD-10-PCS; principal; 2016-07-01 13:00)
DX: I50.23 Acute on chronic systolic (congestive) heart failure (principal); K92.2 Gastrointestinal hemorrhage, unspecified; I69.354 Hemiplegia and hemiparesis following cerebral infarction affecting left non-dominant side; E87.2 Acidosis; J98.11 Atelectasis; I48.92 Unspecified atrial flutter; R17 Unspecified jaundice; I42.0 Dilated cardiomyopathy; I11.0 Hypertensive heart disease with heart failure; E87.6 Hypokalemia; E83.42 Hypomagnesemia; E78.00 Pure hypercholesterolemia, unspecified; I05.9 Rheumatic mitral valve disease, unspecified; I25.10 Atherosclerotic heart disease of native coronary artery without angina pectoris; R13.10 Dysphagia, unspecified; E66.01 Morbid (severe) obesity due to excess calories; K29.70 Gastritis, unspecified, without bleeding; D64.9 Anemia, unspecified; K29.50 Unspecified chronic gastritis without bleeding; K57.90 Diverticulosis of intestine, part unspecified, without perforation or abscess without bleeding; Z79.899 Other long term (current) drug therapy; Z95.2 Presence of prosthetic heart valve; Z95.3 Presence of xenogenic heart valve; Z95.810 Presence of automatic (implantable) cardiac defibrillator; Z68.23 Body mass index [BMI] 23.0-23.9, adult; Z98.890 Other specified postprocedural states; Z98.891 History of uterine scar from previous surgery; Z90.49 Acquired absence of other specified parts of digestive tract
CPT/HCPCS: 36415; 71010; 80048; 80053; 80061; 80162; 80305; 81001; 82270; 82533; 82550; 82553; 83605; 83690; 83735; 83880; 84145; 84443; 84484; 85014; 85018; 85025; 85610; 85730; 86850; 86900; 87040; 87086; 88305; 88312; 88313; 92610; 93005; 93306; 93970; 96361; 96374; 96375; 97116; 97162; 97166; 97530; 97535; 99285; A4216; A6261; C1893; C9113; J1650; J1940; J2060; J2250; J2405; J3010; J3475; J3480; J3490; J7030; J7050; Q0167